=== PATIENT | male | born 2005 ===

== ENCOUNTER 2024-11-08 10:56 | Emergency (ER) | payer SELFPAY | END 2024-11-08 11:20 | disposition home or self-care (01) | LOC: DL.ED 10:56 | DX: K04.7 Periapical abscess without sinus (principal) | CPT/HCPCS: 99282; 99283 ==

== ENCOUNTER 2024-12-07 12:58 | Emergency (ER) | payer SELFPAY | END 2024-12-07 13:20 | disposition home or self-care (01) | LOC: DL.ED 12:58 | DX: Z20.2 Contact with and (suspected) exposure to infections with a predominantly sexual mode of transmission (principal) | CPT/HCPCS: 99283 ==